=== PATIENT | male | born 1980 | race African-American/Black ===

== ENCOUNTER 2022-12-26 16:23 | Emergency (ER) | payer MEDICAID ==
[~2022-12-26] VITALS: Ht 188 cm; Wt 89.8 kg
[2022-12-26] MEDS ORDERED: DIPHENHYDRAMINE 50MG/ML VIAL IV ONE (17:00)
[2022-12-26] MEDS ORDERED: METHYLPREDNISOLONE SOD SUCC 125 MG/2 ML VIAL IV ONE (17:00)
[2022-12-26] MEDS ORDERED: SODIUM CHLORIDE 0.9% 1,000 ML IV ONE (17:00)
[2022-12-26] MEDS ORDERED: FAMOTIDINE 20MG/2ML VIAL IV ONE (17:00)
[2022-12-26 17:31] LABS: BASOPHILS % 0.2 % (0.0-2.0); HEMATOCRIT. 35.1 % (42.0-52.0); HEMOGLOBIN. 12.1 g/dL (14.0-18.0); LYMPHOCYTES % 13.4 % (20.0-50.0); MEAN CORPUSCULAR HEMOGLOBIN 38.4 pg (28.0-32.0); MEAN CORPUSCULAR VOLUME 111.1 fL (80.0-94.0); MEAN PLATELET VOLUME 6.8 fl (7.4-10.4); MONOCYTES % 9.5 % (2.0-8.0); NEUTROPHILS % 75.9 % (40.0-76.0); PLATELET 314 x1000/uL (130-400); RED BLOOD CELL COUNT 3.16 mill/uL (4.7-6.1); RED CELL DISTRIBUTION WIDTH 16.2 % (11.6-14.6)
[2022-12-26 17:40] LABS: CHLORIDE 106 mEq/L (98-107)
[2022-12-26 17:43] LABS: PROTHROMBIN TIME 10.9 sec (9.6-11.0)
[2022-12-26 17:56] LABS: PLATELET ESTIMATE NORMAL
[2022-12-26 20:49] VITALS: BP 140/95
[2022-12-26] MEDS ORDERED: AMLO5TAB4 MT (20:56)
[2022-12-26] MEDS ORDERED: P50 MT (21:02)
[2022-12-26] MEDS ORDERED: B50 GT (21:02)
== END 2022-12-26 21:26 | disposition home or self-care (01) ==
LOC: ER 16:23 → CANBEDREQ 23:46
DX: T78.3XXA Angioneurotic edema, initial encounter (principal); X58.XXXA Exposure to other specified factors, initial encounter; I10 Essential (primary) hypertension
CPT/HCPCS: 36415; 80053; 85025; 85610; 86850; 86900; 86901; 96361; 96374; 96375; 99284; J1200; J2930; J3490; J7030

== ENCOUNTER 2023-01-13 10:48 | Emergency (ER) | payer MEDICAID ==
[~2023-01-13] VITALS: Ht 185.4 cm; Wt 89.0 kg
[~2023-01-13 10:48] MED LIST: AMLO5TAB4 MT; B50 GT; P50 MT
[2023-01-13] MEDS ORDERED: SODIUM CHLORIDE 0.9% 1,000 ML IV ONE (11:45)
[2023-01-13 12:38] LABS: BASOPHILS % 0.6 % (0.0-2.0); EOSINOPHILS % 2.8 % (0.0-5.0); HEMATOCRIT. 31.7 % (42.0-52.0); HEMOGLOBIN. 11.2 g/dL (14.0-18.0); MEAN CORPUSCULAR HEMOGLOBIN 38.9 pg (28.0-32.0); MEAN PLATELET VOLUME 6.8 fl (7.4-10.4); MONOCYTES % 9.2 % (2.0-8.0); NEUTROPHILS % 75.4 % (40.0-76.0); PLATELET 273 x1000/uL (130-400); RED BLOOD CELL COUNT 2.89 mill/uL (4.7-6.1); RED CELL DISTRIBUTION WIDTH 15.9 % (11.6-14.6)
[2023-01-13 13:02] LABS: CHLORIDE 107 mEq/L (98-107)
[2023-01-13 13:15] LABS: PLATELET ESTIMATE NORMAL
[2023-01-13 13:31] LABS: CLARITY URINE CLEAR (CLEAR); COLOR URINE DARK YELLOW (YELLOW); KETONES URINE TRACE (NEGATIVE); LEUKOCYTE ESTERASE URINE NEGATIVE (NEGATIVE); NITRITE URINE NEGATIVE (NEGATIVE); OCCULT BLOOD URINE 1+ (NEGATIVE); PROTEIN URINE 1+ (NEGATIVE); SPECIFIC GRAVITY URINE 1.023 (1.005-1.030)
[2023-01-13] MEDS ORDERED: MORPHINE SULFATE 4 MG/ML CPJ (NOT FOR IM USE) IV ONE (16:00)
[2023-01-13] MEDS ORDERED: IOHEXOL-300 100 ML BOTTLE ONE (17:20)
[2023-01-13] MEDS ORDERED: NAPR-681 MT (17:24)
[2023-01-13] MEDS ORDERED: ACET-2708 MT (17:24)
[2023-01-13] MEDS ORDERED: AMOX1TAB16 MT (17:24)
[2023-01-13 18:11] VITALS: BP 132/78; PULSE 68; RESP 16; TEMP 97.7
== END 2023-01-13 18:12 | disposition home or self-care (01) ==
LOC: ER 10:48
DX: R22.1 Localized swelling, mass and lump, neck (principal); D64.9 Anemia, unspecified; I10 Essential (primary) hypertension
CPT/HCPCS: 99285; 96374; 70491; 96361; 80053; 81003; 85025; 36415; Q9967; J2270; J7030